=== PATIENT | female | born 1945 ===

== ENCOUNTER 2022-10-20 08:00 | Inpatient (IN) | payer OTHER ==
[~2022-10-20] VITALS: Ht 157.5 cm; Wt 65.8 kg
[2022-10-20] MEDS ORDERED: LIPITOR20 MG PO (09:08)
[2022-10-20] MEDS ORDERED: ENALAPRIL MALEAT5 MG PO (09:08)
[2022-10-20] MEDS ORDERED: GLIMEPIRIDE4 M1 PO (09:08)
[2022-10-20] MEDS ORDERED: ACETAMINOPHEN-1 EAC2 PO (09:09)
[2022-10-20] MEDS ORDERED: PROTONIX40 MG PO (09:09)
[2022-10-25] MEDS ORDERED: OLOPATADINE HCL5 ML (08:26)
[2022-10-26] MEDS ORDERED: INTEGRA PLUS C1 EACH PO (07:47)
[2022-10-26] MEDS ORDERED: XARELTO10 MG PO (07:47)
[2022-10-26] MEDS ORDERED: OXYC1TAB9 PO (07:47)
[2022-10-26] MEDS ORDERED: BACTRIM DS TAB1 EACH PO (07:47)
== END 2022-10-26 15:17 | DRG 470 ==
LOC: SURH 10-24 05:49 → O/R 10-24 05:49 → SURH 10-24 08:00
PROVIDERS: ADMIT Orthopaedic Surgery Sports Medicine; ATTEND Orthopaedic Surgery Sports Medicine
PROC: 3E0F7SF Introduction of Other Gas into Respiratory Tract, Via Natural or Artificial Opening (ICD-10-PCS; 2022-10-24)
PROC: 0SRD0J9 Replacement of Left Knee Joint with Synthetic Substitute, Cemented, Open Approach (ICD-10-PCS; principal; 2022-10-24 10:10)
DX: M17.12 Unilateral primary osteoarthritis, left knee (principal); I10 Essential (primary) hypertension; E11.9 Type 2 diabetes mellitus without complications; Z79.84 Long term (current) use of oral hypoglycemic drugs